=== PATIENT | female | born 1985 | race Hispanic/Latino ===

== ENCOUNTER 2024-04-04 20:23 | Emergency (ER) | payer SELFPAY ==
[2024-04-04] MEDS ORDERED: Ketorolac Tromethamine 60 MG/2 ML VIAL ONE (22:09)
[2024-04-04] MEDS ORDERED: Orphenadrine Citrate 60 MG/2 ML VIAL ONE (22:09)
== END 2024-04-04 22:30 | disposition home or self-care (01) ==
LOC: NAV ERS 20:23
DX: S13.9XXA Sprain of joints and ligaments of unspecified parts of neck, initial encounter (principal); S40.021A Contusion of right upper arm, initial encounter; S80.01XA Contusion of right knee, initial encounter; R51.9 Headache, unspecified; V49.50XA Passenger injured in collision with unspecified motor vehicles in traffic accident, initial encounter
CPT/HCPCS: 70450; 72125; 96372; J1885; J2360